=== PATIENT | female | born 1980 | race African-American/Black ===

== ENCOUNTER 2022-09-04 15:16 | Emergency (ER) | payer BC, MEDICAID ==
[~2022-09-04] VITALS: Ht 172.7 cm; Wt 88.6 kg
[2022-09-04] MEDS ORDERED: metoclopramide 5 mg/ml inj IV ONE (15:25)
[2022-09-04] MEDS ORDERED: diphenhydrAMINE 50 mg/ml inj IV ONE (15:25)
[2022-09-04 15:32] LABS: BASOPHILS % (AUTO) 0.7 % (0-1); EOSINOPHILS # (AUTO) 0.2 X10'3 (0-0.9); EOSINOPHILS % (AUTO) 2.8 % (0-6); HEMOGLOBIN 14.7 g/dl (12.0-16.0); MEAN CORPUSCULAR HEMOGLOBIN 32.6 PG (27.0-31.0); MEAN PLATELET VOLUME 8.2 FL (7.4-10.4); WHITE BLOOD COUNT 7.1 X10'3 (4.5-11.0)
[2022-09-04 15:34] LABS: HEMATOCRIT 43.3 % (35.0-45.0); LYMPHOCYTES # (AUTO) 4.4 X10'3 (1.1-4.8); LYMPHOCYTES % (AUTO) 61.3 % (21-51); MEAN CORPUSCULAR HGB CONC 34.1 g/dL (33.0-36.5); MEAN CORPUSCULAR VOLUME 95.7 FL (78-98); MONOCYTES # (AUTO) 0.8 X10'3 (0-0.9); MONOCYTES % (AUTO) 10.8 % (2-12); NEUTROPHILS # (AUTO) 1.7 X10'3 (1.8-7.7); NEUTROPHILS % (AUTO) 24.4 % (42-75); PLATELET COUNT 262 X10'3 (140-440); RED BLOOD COUNT 4.52 X10'6 (4.20-5.60); RED CELL DISTRIBUTION WIDTH 13.8 % (11.5-14.5)
[2022-09-04 15:49] LABS: ALANINE AMINOTRANSFERASE 17 U/L (12-78); ALBUMIN 3.8 G/DL (3.4-5.0); ALKALINE PHOSPHATASE 58 IU/L (46-116); ANION GAP 16 (8-16); ASPARTATE AMINO TRANSFERASE 11 U/L (10-37); BILIRUBIN,TOTAL 0.6 MG/DL (0.1-1.0); BLOOD UREA NITROGEN 15 MG/DL (7-18); BUN/CREATININE RATIO 12.7 (10.0-20.0); CALCIUM 9.2 MG/DL (8.5-10.1); CHLORIDE 104 MMOL/L (99-107); CREATININE 1.18 MG/DL (0.40-0.90); GLUCOSE 135 MG/DL (70-104); POTASSIUM 3.6 MMOL/L (3.5-5.1); SODIUM 141 MMOL/L (135-145); TOTAL CARBON DIOXIDE 20.6 MMOL/L (24-32); TOTAL PROTEIN 7.6 G/DL (6.4-8.2); eGFR 50 ML/MIN
[2022-09-04 15:57] LABS: LIPASE 69 U/L (73-393)
--- NOTE | 2022-09-04 16:10 | NUR ---
SPO2 86% ON ROOM AIR, PATIENT SPO2 95% AFTER STIMULATION, DR VERDE AT BEDSIDE STATED TO PAGE RT FOR STAT ABG.
[2022-09-04 16:29] LABS: ABG BASE EXCESS -1.2 mmol/L (-2.0-2.0); ABG HCO3 22.3 mmol/L (22.0-26.0); ABG OXYGEN SATURATION 80.9 % (94-97); ABG PO2 (T) 46.3 mmHg (75.0-100.0); ALLEN'S TEST POSITIVE; FCOHb 4.9 % (0.0-3.9); FMetHb 0.1 % (0.0-1.5); FO2Hb 76.9 % (94-97); TOTAL HEMOGLOBIN 14.6 G/dl (12.0-16.0)
[2022-09-04 16:48] LABS: D-DIMER 0.37 MG/L FEU (0-0.50)
[2022-09-04 16:56] LABS: TOTAL CELLS COUNTED 100
[2022-09-04 16:57] LABS: PLATELET ESTIMATE NORMAL
[2022-09-04 17:54] VITALS: BP 142/92
== END 2022-09-04 17:58 | disposition home or self-care (01) ==
LOC: ER 15:16
DX: R06.02 Shortness of breath (principal)
CPT/HCPCS: 36415; 36600; 71045; 80053; 82803; 83690; 83880; 84484; 85007; 85018; 85025; 85379; 93005; 96374; 96375; 99285; J1200; J2765; A4615